=== PATIENT | female | born 1975 | race Caucasian/White ===

== ENCOUNTER 2022-01-14 07:41 | Emergency (ER) | payer SELFPAY ==
[2022-01-14 07:44] VITALS: BP 125/82; PULSE 62; RESP 18; TEMP 36.4; O2SAT 100
--- NOTE | 2022-01-14 08:18 | ED.EAR ---
HPI - Ear Problem General Chief complaint: Ear Stated complaint: bleeding from r ear, l ear pain Time Seen by Provider: 01/14/22 07:50 Source: patient Mode of arrival: ambulatory Limitations: no limitations History of Present Illness HPI Narrative: Patient is a 46-year-old female complaining of bilateral ear pain, left greater than the right, dull, aching that started a few days ago. Patient states this morning she noticed very small amount of blood pillow and when she use a Q-tip to check her ear, it had blood in it. Patient denies any cough, nasal congestion, fever or chills. Negative for any headache, dizziness, hearing loss, or neck pain. Duration: constant Severity: moderate Relieving factors: nothing Exacerbating factors: palpation Context: Denies recent illness Related Data Home Medications Medication Instructions Recorded Confirmed Effexor XR 01/14/22 omeprazole 01/14/22 Allergies Allergy/AdvReac Type Severity Reaction Status Date / Time No Known Allergies Allergy Verified 01/14/22 07:46 Review of Systems Review of Systems: Per HPI PMFSH Comments Past medical history: Hypertension Family history: Hypertension Social history: Positive for smoker, occasional EtOH use, occasional marijuana use Exam Const: General: no acute distress and alert Orientation/consciousness: patient oriented x3 HENMT: Head: no contusions and no hematomas Ears: external ears normal Other: No active bleeding present in both ears. Erythematous ear canal bilaterally, right greater than the left, tympanic membrane intact, negative for any tympanic membrane rupture, negative for any discharge. Eyes: Conjunctivae: conjunctivae normal Neck: Neck: normal visual inspection Resp: Effort & Inspection: normal respiratory effort Course Vital Signs Vital signs: Vital Signs Temperature 36.4 C 01/14/22 07:44 Pulse Rate 62 01/14/22 07:44 Respiratory Rate 18 01/14/22 07:44 Blood Pressure 125/82 01/14/22 07:44 Pulse Oximetry 100 01/14/22 07:44 Temperature 36.4 C 01/14/22 07:44 Pulse Rate 62 01/14/22 07:44 Respiratory Rate 18 01/14/22 07:44 Blood Pressure 125/82 01/14/22 07:44 Pulse Oximetry 100 01/14/22 07:44 Medical Decision Making Vital Signs Vital Signs: Vital Signs Temperature 36.4 C 01/14/22 07:44 Pulse Rate 62 01/14/22 07:44 Respiratory Rate 18 01/14/22 07:44 Blood Pressure 125/82 01/14/22 07:44 Pulse Oximetry 100 01/14/22 07:44 Temperature 36.4 C 01/14/22 07:44 Pulse Rate 62 01/14/22 07:44 Respiratory Rate 18 01/14/22 07:44 Blood Pressure 125/82 01/14/22 07:44 Pulse Oximetry 100 01/14/22 07:44 Discharge Plan Discharge Clinical Impression: Otitis externa Qualifiers: Otitis externa type: unspecified type Chronicity: acute Laterality: unspecified laterality Qualified Code(s): H60.509 - Unspecified acute noninfective otitis externa, unspecified ear Patient Disposition: Home, Self-Care Condition: Stable Instructions: Ear Infection (ED) Additional Instructions: Follow-up with your primary care physician in 1 to 2 days Prescriptions: New Cipro HC 0.2-1 % drops,suspension 3 drp EACH EAR Q12H 7 Days RF: 0 No Action omeprazole RF: 0 Effexor XR RF: 0 Follow-up/Referrals: PHYSICIAN NOT ON STAFF,NONSTAFF [Primary Care Provider] - Time of Disposition: 08:23
== END 2022-01-14 09:21 | disposition home or self-care (01) ==
PROVIDERS: Emergency Provider Emergency Medicine
DX: H66.93 Otitis media, unspecified, bilateral (principal)
CPT/HCPCS: 99283

== ENCOUNTER 2022-03-17 10:18 | Emergency (ER) | payer BC, SELFPAY ==
[2022-03-17] VITALS (8 sets, daily range): BP systolic 120–141; BP diastolic 74–95; PULSE 59–79; RESP 12–16; TEMP 36.6; O2SAT 99–100
--- NOTE | ~2022-03-17 | CT_ITS ---
EXAMINATION: CT abdomen pelvis wo con DATE: 03/17/2022 12:13 INDICATION: Abdominal pain TECHNIQUE: Computed tomography (CT) of the abdomen and pelvis was performed without intravenous contr ast. Automated exposure control and iterative reconstruction technique were employed. The dose-length product was 606.99 mGy-cm. COMPARISON: None FINDINGS: Lung bases are clear. Heart size is normal. No pericardial or pleural effusion. Small sliding-type hi atal hernia. A couple 1-1.5 cm nodular soft tissue densities at the inner inferior quadrant of the le ft breast. Cholecystectomy clips the gallbladder fossa. Liver, spleen, pancreas and bilateral adrenal glands are normal. Bilateral nonobstructing nephrolithiasis with at least 4 stones measuring <2 mm i n both kidneys. No ureteral stones or hydronephrosis. There is fluid scattered throughout nondilated large and small bowel consistent with nonspecific diarrhea. No abnormal bowel wall thickening or obst ruction. Normal appendix. Approximately 2.3 cm subserosal fibroid at the right side of the uterine fu ndus. 1.7 cm right adnexal cyst/follicle. Bladder and left adnexa are unremarkable. No free intraperi toneal gas or fluid. No pathologically enlarged abdominal or pelvic lymphadenopathy. 2.1 cm rim calci fied nodule likely sequela fat necrosis in these subcutaneous fat of the right upper quadrant near a small surgical clip. Bones are unremarkable. IMPRESSION: 1. Nonspecific diarrhea with fluid throughout the large and small bowel. Correlate clinically for ent eritis. 2. Couple small nodular soft tissue densities in the lower inner quadrant of the left breast. Correla te with mammography. 3. Small fat-containing diaphragmatic hernia. 4. Bilateral nonobstructing nephrolithiasis. 5. Fibroid uterus. Reviewed, dictated and finalized at location B. IMPRESSION: 1. Nonspecific diarrhea with fluid throughout the large and small bowel. Correl ate clinically for enteritis. 2. Couple small nodular soft tissue densities in the lower inner quadrant of th e left breast. Correlate with mammography. 3. Small fat-containing diaphragmatic hernia. 4. Bilateral nonobstructing nephrolithiasis. 5. Fibroid uterus.
[2022-03-17 11:13] LABS: Basophils Percent Auto 0.2 % (0.2-1.2); Eosinophils Absolute Auto 0.2 K/mm3 (0-0.3); Eosinophils Percent Auto 2.5 % (0-4.4); Hematocrit 44.6 % (37.0-47.0); Hemoglobin 14.6 g/dL (12.0-15.0); Immature Granulocyte Absolute 0.03 K/mm3 (0.00-0.031); Immature Granulocyte Percent A 0.4 % (0-0.5); Lymphocytes Absolute Auto 1.25 K/mm3 (0.9-3.2); Mean Corpuscular HGB Conc 32.7 g/dl (32-36); Mean Corpuscular Hemoglobin 28.6 pg (26-34); Mean Corpuscular Volume 87.5 fl (80-100); Mean Platelet Volume 10.4 fl (7.4-10.4); Monocytes Absolute Auto 0.5 K/mm3 (0.1-0.6); Monocytes Percent Auto 5.5 % (2.6-8.5); Neutrophils Absolute Auto 6.3 K/mm3 (1.3-6.7); Neutrophils Percent Auto 76.4 % (45.5-73.1); Platelet Count Result 321 k/mm3 (150-375); Red Cell Distribution Width 14.5 % (11.5-14.5); White Blood Count 8.3 K/mm3 (4.5-10.0)
[2022-03-17 11:23] LABS: Alanine Aminotransferase 15 U/L (6-35); Albumin Level 4.4 g/dL (3.5-5.1); Alkaline Phosphatase 84 U/L (38-126); Anion Gap 8 mmol/L (8-16); Aspartate Amino Transferase 23 U/L (14-36); Bilirubin,Total 0.5 mg/dL (0.2-1.3); Blood Urea Nitrogen 13 mg/dL (7-17); Calcium 8.7 mg/dL (8.4-10.2); Carbon Dioxide 24 mmol/L (22-30); Chloride 107 mmol/L (98-107); Estimated CRCL calculation 101 ml/min; Estimated Glomerular Filt Rate > 60; Glucose 116 mg/dL (65-110); Lipase 521 U/L (23-300); Potassium 3.9 mmol/L (3.4-5.0); Sodium 139 mmol/L (137-145)
--- NOTE | 2022-03-17 11:41 | PC.NURSE ---
PT HAS C/O UPPER ABD PAIN X 2 DAYS ALONG WITH WATERY DIARRHEA. PT REPORTS THIS IS THE 3RD TIME IN A MONTH THAT SHE HAS HAD THIS EPISODE
--- NOTE | 2022-03-17 11:54 | PC.NURSE ---
URINE COLLECTED PT ON MENSES, SMALL CLOTS NOTED IN SPECIMEN ALONG WITH PINK COLORED URINE
[2022-03-17 12:00] LABS: Appearance Urine Turbid (Clear); Color Urine Red (Yellow); Glucose Urine UA Negative (Negative); Protein Urine 1+ mg/dL (Negative)
[2022-03-17 12:01] LABS: Add Urine Microscopic? YES; Bilirubin Urine 2+ (Negative); Blood Urine 3+ (Negative); Ketones Urine Negative (Negative); Leukocyte Esterase Ur 1+ LEU/UL (Negative); Nitrate Urine Negative (Negative); Urobilinogen Urine 0.2 mg/dL (<2.0)
[2022-03-17 12:06] LABS: Mucus Urine Few /lpf; RBC Urine >75 /hpf (0-2); Squamous Epithelial Cell Urine Many /hpf (Few); WBC Urine 31-50 /hpf
[2022-03-17] MEDS: MORPHINE SULFATE (*CRX) 4 MG/ML INJ IV PUSH (12:17)
[2022-03-17] MEDS: SODIUM CHLORIDE 0.9% IV 1,000 ML 999 ML IV CONT (12:17)
[2022-03-17] MEDS: ONDANSETRON INJ 4 MG/2 ML VIAL IV PUSH (12:17)
--- NOTE | 2022-03-17 12:46 | ED.GENADULT ---
HPI - General Adult General Chief complaint: Abdominal Pain Stated complaint: abd pain x 1 month Time Seen by Provider: 03/17/22 11:43 Source: RN notes reviewed History of Present Illness HPI narrative: Patient presents emergency department from home for abdominal pain. Patient states that belly pain began 3 days ago. The pain is located throughout the abdomen and is described as cramping in nature worse in the upper abdomen states has been associated with several episodes of diarrhea as well as nausea. She denies any fevers. She states that she has had 3 episodes of abdominal pain over the past 1 month but has had no previous evaluation she denies any fevers or chills chest pain shortness of breath or any other symptoms Related Data Home Medications Medication Instructions Recorded Confirmed Effexor XR 01/14/22 omeprazole 01/14/22 Allergies Allergy/AdvReac Type Severity Reaction Status Date / Time No Known Allergies Allergy Verified 01/14/22 07:46 Review of Systems Review of Systems: Gen.: Denies fevers or chills ENT: Denies congestion Respiratory: Denies shortness of breath or cough CV: Denies chest pain or palpitations GI: See HPI denies burning, urgency, frequency or hematuria Musculoskeletal: Denies back pain or muscle pain Neuro: Denies numbness, tingling, weakness or focal weakness Skin: Denies rash Except as documented, all other systems reviewed and negative [facility] Past Medical History Medical History (Updated 03/17/22 @ 12:54 by Matthew Vallecillo DO) Patient denies significant medical history Surgical History Surgical History (Updated 03/17/22 @ 12:49 by Matthew Vallecillo DO) History of cholecystectomy Social History Social History (Updated 03/17/22 @ 12:49 by Matthew Vallecillo DO) Smoking status: Never smoker Exam Narrative: APPEARANCE: No acute distress, nontoxic, resting in bed HEENT: Normocephalic, atraumatic, OMM RESPIRATORY: No respiratory distress, clear to auscultation bilaterally with no rhonchi wheezing or rales CARDIOVASCULAR: RRR s murmur ABDOMINAL: Soft nondistended diffusely tender to palpation no rebound or guarding MUSCULOSKELETAl: Moves all extremities. No clubbing, cyanosis or edema. NEURO: Awake and alert. Following commands, speech normal, no focal deficits SKIN:: Warm, dry. Normal Color PSYCHIATRIC: Normal affect/mood Course Course Emergency Course: Patient states that they are feeling much better at this time. States abdominal pain has resolved. Repeat abdominal exam shows the patient's abdomen to be soft and nontender. Discussed with patient results of workup and diagnosis. Discussed need for follow-up with primary care physician, reasons to return to the emergency department in proper use of medication. Patient understands and agrees to current treatment plan. Discussed with patient CT scan showing nodules in breast states she has a known mass in her left breast is being followed has had mammograms Vital Signs Vital signs: Vital Signs Temperature 97.8 F 03/17/22 10:58 Pulse Rate 79 03/17/22 10:58 Respiratory Rate 16 03/17/22 10:58 Blood Pressure 133/90 03/17/22 10:58 Pulse Oximetry 100 03/17/22 10:58 Oxygen Delivery Room Air 03/17/22 10:58 Temperature 97.8 F 03/17/22 10:58 Pulse Rate 79 03/17/22 10:58 Respiratory Rate 16 03/17/22 10:58 Blood Pressure 133/90 03/17/22 10:58 Pulse Oximetry 100 03/17/22 10:58 Oxygen Delivery Room Air 03/17/22 10:58 Medical Decision Making Vital Signs Vital Signs: Vital Signs Temperature 97.8 F 03/17/22 10:58 Pulse Rate 79 03/17/22 10:58 Respiratory Rate 16 03/17/22 10:58 Blood Pressure 133/90 03/17/22 10:58 Pulse Oximetry 100 03/17/22 10:58 Oxygen Delivery Room Air 03/17/22 10:58 Temperature 97.8 F 03/17/22 10:58 Pulse Rate 79 03/17/22 10:58 Respiratory Rate 16 03/17/22 10:58 Blood Pressure 133/90 03/17/22 10:58 Pulse
[2022-03-17] MEDS: CIPROFLOXACIN 500 MG TAB PO (13:11)
== END 2022-03-17 13:17 | disposition home or self-care (01) ==
PROVIDERS: Emergency Provider Emergency Medicine
DX: N39.0 Urinary tract infection, site not specified (principal); R19.7 Diarrhea, unspecified; N20.0 Calculus of kidney; D25.9 Leiomyoma of uterus, unspecified; N63.24 Unspecified lump in the left breast, lower inner quadrant
CPT/HCPCS: 36415; 74176; 80053; 81001; 81025; 83690; 85025; 87086; 96361; 96374; 96375; 99284; A9270; J2270; J2405; J7030